=== PATIENT | male | born 1985 | race Caucasian/White ===

== ENCOUNTER 2017-02-15 15:40 | Emergency (ER) | payer OTHER ==
--- NOTE | 2017-02-16 13:01 | NUR ---
Received SAD person referral. Attempted to contact pt. No answer, voice mail message left.
--- NOTE | 2017-02-16 13:19 | NUR ---
Pt called back. [facility] and trying to get into detox/treatment.
--- NOTE | 2017-02-22 01:20 | ER ---
ADMIT: 02/15/2017 RM/LOC: ER [facility] MR#: [id number] [facility] [address] [place] [id number] [address] [place], [place] [id number] Emergency Room Report SEX: M AGE: 31 : 1985 DATE: 02/15/2017 ADDENDUM: See T-sheet for complete H and P. A 31-year-old male who has history of traumatic brain injury, PTSD, and methamphetamine and benzodiazepine abuse, presents to the ER, trying to get into a detox program. He states that he has been using Ativan that he has purchased on the streets for several weeks now. He also states he has been using methamphetamine several times over the past 2 weeks. He does normally [facility] [place] [facility] [place] and he has a Suboxone prescription for history of heroin abuse. He was unable to get into [facility] today because he has been taking Ativan that has not been prescribed to him. He states that he just feels a little anxious here, but otherwise, no specific complaints. I did do an EPC protocol on the patient because he stated that if he would plan on hurting himself, he would take a bottle of Ativan. His EPC routine here showed that his white count is 3.6, hemoglobin is 13.7, otherwise his CBC was normal. Chemistries are normal. Alcohol level was none. Acetaminophen is less than two, and aspirin is less than 1.7. Urinalysis was normal. His tox screen is positive for benzodiazepine. HOSPITAL COURSE: We did have the patient evaluated by the [place] [employer] and does not believe he can agree with him. We did talk to [facility] at detox program and they would need to have a prescription for 30 days with one month refill of Suboxone for . There is no provider in the ER including myself, I prescribed Suboxone at this time. He does have friends here who are with him today and they are willing to take the patient home and [facility]. At that time, hopefully, he can get a prescription for Suboxone and get [facility]. Give him an Ativan in the Emergency Department, sent him a prescription of Ativan 1 mg tabs to be taken as needed for him to help get him through the evening and to prevent any benzodiazepine withdrawal. DIAGNOSES: The patient is discharged home with the diagnoses of: 1. Methamphetamine abuse. 2. Benzodiazepine abuse. 3. ID. Andrea Rosa MD/ tyler JOB #: [id number] CC: Parish Moncada MD, Attending Physician
== END 2017-02-15 19:00 | disposition home or self-care (01) ==
LOC: ER 15:40
DX: F13.10 Sedative, hypnotic or anxiolytic abuse, uncomplicated (principal); F15.10 Other stimulant abuse, uncomplicated; F41.9 Anxiety disorder, unspecified; F17.210 Nicotine dependence, cigarettes, uncomplicated; Z79.899 Other long term (current) drug therapy